=== PATIENT | female | born 1975 ===

== ENCOUNTER → 2021-01-09 | Outpatient (CLI) | payer OTHER ==
--- NOTE | 2021-01-09 13:06 | KCIC ---
MR LUMBAR SPINE WO [id number] Date: 01/09/2021 11:05 AM Indication: LOWER BACK PAIN. Chronic lower back pain but more recent BLE pain when walking. Comparison: None. Technique: Multi-planar multi-weighted magnetic resonance imaging of the lumbar spine was performed w ithout intravenous contrast using the standard lumbar spine protocol. FINDINGS: The lumbar spine is normally aligned. No acute fracture. Mild multilevel degenerative disc desiccatio n and disc height loss. Bone marrow signal intensity is normal. The conus terminates at a normal level. No abnormal signal is seen within the visualized distal spina l cord. No clumping of intrathecal nerve roots. No soft tissue abnormality in the visualized abdomen or pelvis. T12-L1: No disc bulge. No facet arthropathy. No significant spinal stenosis or neural foraminal narro wing. L1-L2: No disc bulge. No facet arthropathy. No significant spinal stenosis or neural foraminal narrow ing. L2-L3: No disc bulge. No facet arthropathy. No significant spinal stenosis or neural foraminal narrow ing. L3-L4: Disc bulge. Mild facet arthropathy. No significant spinal stenosis or neural foraminal narrowi ng. L4-L5: Disc bulge with annular tear. Mild right and moderate left facet arthropathy. No significant s hunter stenosis or neural foraminal narrowing. L5-S1: Disc bulge with annular tear. Moderate facet arthropathy. No significant spinal stenosis or ne ural foraminal narrowing. IMPRESSION: Mild lumbar spondylosis. No significant spinal canal stenosis or neural foraminal narrowing.. Electronically signed by: Idris Oneill MD (01/09/2021 1:03 PM) [id number]
== END ==
LOC: KCIC MRI 10:51
PROVIDERS: ATTEND Family Medicine
DX: M47.817 Spondylosis without myelopathy or radiculopathy, lumbosacral region (principal); M51.27 Other intervertebral disc displacement, lumbosacral region; M48.061 Spinal stenosis, lumbar region without neurogenic claudication; N39.46 Mixed incontinence; M79.651 Pain in right thigh; I73.9 Peripheral vascular disease, unspecified; M79.652 Pain in left thigh
CPT/HCPCS: 72148